=== PATIENT | male | born 1995 | race Caucasian/White ===

== ENCOUNTER 2022-10-30 01:36 | Emergency (ER) | payer MEDICAID ==
[~2022-10-30] VITALS: Ht 180.3 cm; Wt 81.6 kg
[2022-10-30 02:10] VITALS: BP 135/72
--- NOTE | 2022-10-30 02:13 | NUR ---
TO LOBBY A/W BED AMBULATORY
--- NOTE | 2022-10-30 03:32 | NUR ---
lwbs per admiting
== END 2022-10-30 03:32 | disposition left against medical advice (07) ==
LOC: MED 01:36
DX: N48.89 Other specified disorders of penis (principal); Z53.21 Procedure and treatment not carried out due to patient leaving prior to being seen by health care provider

== ENCOUNTER 2022-11-12 19:49 | Emergency (ER) | payer MEDICAID ==
[~2022-11-12] VITALS: Ht 180.3 cm; Wt 81.6 kg
[2022-11-12 20:00] VITALS: BP 117/66
--- NOTE | 2022-11-12 20:03 | NUR ---
TO LOBBY A/W BED AMBULATORY
--- NOTE | 2022-11-12 21:13 | NUR ---
PT CALLED FROM INSIDE LOBBY AND OUTSIDE, NO RESPONSE
== END 2022-11-12 21:15 | disposition left against medical advice (07) ==
LOC: MED 19:49
DX: M25.572 Pain in left ankle and joints of left foot (principal); Z53.21 Procedure and treatment not carried out due to patient leaving prior to being seen by health care provider
CPT/HCPCS: 73610

== ENCOUNTER 2023-09-10 00:18 | Emergency (ER) | payer OTHER ==
[~2023-09-10] VITALS: Ht 180.3 cm; Wt 81.6 kg
[2023-09-10 00:20] VITALS: BP 101/80; PULSE 100; RESP 16; TEMP 98.4; O2SAT 98
[2023-09-10 00:21] VITALS: O2SAT 98
[2023-09-10] MEDS ORDERED: ACETAMINOPHEN EXTRA STRENGTH 500 MG TAB PO ONE (01:25)
== END 2023-09-10 02:30 | disposition left against medical advice (07) ==
LOC: MED 00:18
DX: S16.1XXA Strain of muscle, fascia and tendon at neck level, initial encounter (principal); S09.90XA Unspecified injury of head, initial encounter; F17.210 Nicotine dependence, cigarettes, uncomplicated; V89.2XXA Person injured in unspecified motor-vehicle accident, traffic, initial encounter; Y93.89 Activity, other specified; Y92.410 Unspecified street and highway as the place of occurrence of the external cause; Y99.8 Other external cause status
CPT/HCPCS: 70450; 71045; 99284